=== PATIENT | male | born 1995 ===

== ENCOUNTER 2021-07-09 10:30 | Emergency (ER) | payer SELFPAY ==
[~2021-07-09] VITALS: Ht 165.1 cm; Wt 54.5 kg
[2021-07-09 11:13] VITALS: TEMP 98.4
[2021-07-09 12:26] LABS: COLLECTION METHOD CLEAN CATCH
[2021-07-09 12:32] LABS: MUCOUS Present (NOT PRESENT); PH 5 (5-8); SQUAMOUS EPITHELIAL None Seen /hpf (0-10); URINE APPEARANCE Clear (CLEAR/HAZY); URINE BACTERIA None Seen /hpf (NONE SEEN); URINE BILIRUBIN Negative (NEGATIVE); URINE BLOOD 1+ (NEGATIVE); URINE COLOR Straw (YELLOW); URINE GLUCOSE Negative (NEGATIVE); URINE KETONE Negative (NEGATIVE); URINE LEUKOCYTE ESTERASE Negative (NEGATIVE); URINE NITRATE Negative (NEGATIVE); URINE PROTEIN(semi-quant) Negative (NEGATIVE); URINE RBC 0-2 /hpf (0-2); URINE UROBILINOGEN Negative (NEGATIVE); URINE WBC None Seen /hpf (0-2)
[2021-07-09] MEDS ORDERED: DOXYCYCLINE HY100 MG PO (13:54)
[2021-07-09 14:13] VITALS: BP 144/92; PULSE 70
== END 2021-07-09 14:15 | disposition home or self-care (01) ==
LOC: COL.ER 10:30
PROVIDERS: Emergency Medicine
DX: N45.1 Epididymitis (principal); F17.290 Nicotine dependence, other tobacco product, uncomplicated
CPT/HCPCS: J0696

== ENCOUNTER → 2021-09-19 | Emergency (ER) | payer SELFPAY ==
[~2021-09-19] MED LIST: DOXYCYCLINE HY100 MG PO; NAPROSYN500 MG PO
== END ==
LOC: COL.ER 14:00
DX: R69 Illness, unspecified (principal)

== ENCOUNTER 2021-10-21 11:11 | Emergency (ER) | payer SELFPAY ==
[~2021-10-21] VITALS: Ht 165.1 cm; Wt 60.6 kg
[~2021-10-21 11:11] MED LIST changes: -NAPROSYN500 MG PO
[2021-10-21 11:51] VITALS: TEMP 98.1
[2021-10-21] MEDS ORDERED: NAPROSYN500 MG PO (13:13)
[2021-10-21 13:30] VITALS: BP 150/95; PULSE 56
== END 2021-10-21 13:30 | disposition home or self-care (01) ==
LOC: COL.ER 11:11
DX: S20.213A Contusion of bilateral front wall of thorax, initial encounter (principal); F17.210 Nicotine dependence, cigarettes, uncomplicated; Z28.311 Partially vaccinated for COVID-19; Y09 Assault by unspecified means

== ENCOUNTER 2021-12-17 15:48 | Emergency (ER) | payer SELFPAY ==
[~2021-12-17] VITALS: Ht 165.1 cm; Wt 61.0 kg
[~2021-12-17 15:48] MED LIST changes: +NAPROSYN500 MG PO
[2021-12-17 15:55] VITALS: BP 174/104; TEMP 97.5
[2021-12-17 16:20] LABS: COLLECTION METHOD CLEAN CATCH
[2021-12-17 16:28] LABS: SQUAMOUS EPITHELIAL None Seen /hpf (0-10); URINE APPEARANCE Clear (CLEAR/HAZY); URINE BACTERIA None Seen /hpf (NONE SEEN); URINE BLOOD TRACE-INTACT (NEGATIVE); URINE COLOR Yellow (YELLOW); URINE GLUCOSE Negative (NEGATIVE); URINE KETONE Negative (NEGATIVE); URINE NITRATE Negative (NEGATIVE); URINE PROTEIN(semi-quant) Negative (NEGATIVE); URINE RBC 0-2 /hpf (0-2); URINE UROBILINOGEN 0.2 (NEGATIVE)
[2021-12-17 16:46] VITALS: PULSE 71
== END 2021-12-17 16:46 | disposition home or self-care (01) ==
LOC: COL.ER 15:48
PROVIDERS: Physician Assistant
DX: N45.1 Epididymitis (principal); A64 Unspecified sexually transmitted disease
CPT/HCPCS: J0696